=== PATIENT | male | born 1985 | race African-American/Black ===

== ENCOUNTER 2021-02-10 21:48 | Emergency (ER) | payer SELFPAY ==
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
== END 2021-02-10 22:21 | disposition home or self-care (01) ==
LOC: JD.ED 21:48
DX: S09.93XA Unspecified injury of face, initial encounter (principal); Z88.0 Allergy status to penicillin; Y04.0XXA Assault by unarmed brawl or fight, initial encounter
CPT/HCPCS: 99283